=== PATIENT | male | born 1990 | race Caucasian/White ===

== ENCOUNTER 2025-06-20 10:06 | Emergency (ER) | payer OTHER ==
[~2025-06-20] VITALS: Ht 188 cm; Wt 111.6 kg
[~2025-06-20 10:06] MED LIST: CLON0.2T PO; FLUO-290 PO; GABA-1635 PO; METH-1022 PO; METH30CP6 PO; SUBO8MIS SL
[2025-06-20 10:07] VITALS: TEMP 99; O2SAT 100
[2025-06-20] MEDS ORDERED: CYCL-707 PO (13:24)
[2025-06-20] MEDS ORDERED: IBUP600T42 PO (13:24)
[2025-06-20 13:32] VITALS: BP 150/74
== END 2025-06-20 13:33 | disposition home or self-care (01) ==
LOC: M ED 10:06 → EDBD 10:06 → M ED 13:33
DX: S13.4XXA Sprain of ligaments of cervical spine, initial encounter (principal); V49.40XA Driver injured in collision with unspecified motor vehicles in traffic accident, initial encounter; Y92.9 Unspecified place or not applicable; Y93.9 Activity, unspecified; Y99.9 Unspecified external cause status; F17.200 Nicotine dependence, unspecified, uncomplicated; Z79.899 Other long term (current) drug therapy